=== PATIENT | female | born 1960 | race Caucasian/White ===

== ENCOUNTER 2017-03-26 13:50 | Day surgery (SDC) | payer BC ==
[~2017-03-26 13:50] MED LIST: BRIDION 200MG/2ML IV ONE; DILAUDID 2 MG INJECTION IV ONE; DIPRIVAN 200 MG/20 ML IV ONE; Decadron 4 MG INJ IV ONE; Lactated Ringers 1,000 ML IV ONE; Lactated Ringers 1,000 ML IV SCH; MEFOXIN 2 GM PREMIX** 2 GM/50 ML ML IV ONE; MEFOXIN 2 GM PREMIX** 2 GM/50 ML ML IV SCH; Quelicin Fliptop 200 MG/10 ML IV ONE; SUBLIMAZE 100 MCG/2 ML IV ONE; Sensorcaine 0.25% 10 ML ONE; TORAdol 30 mg Injection IV ONE; Zemuron 100 MG/10 ML IV ONE; Zofran 4 MG/2 ML VIAL IV ONE
[2017-03-26] MEDS ORDERED: MORPHINE SULFATE 2 MG INJ IV PRN (18:24)
[2017-03-26] MEDS ORDERED: MORPHINE SULFATE 2 MG INJ ONE (18:27)
[2017-03-26 19:00] VITALS: PULSE 60; O2SAT 94
[2017-03-26 19:32] VITALS: BP 121/76
== END 2017-03-26 19:35 | disposition home or self-care (01) ==
LOC: SDC 13:50
PROVIDERS: ATTEND Surgery
PROC: 0FT44ZZ Resection of Gallbladder, Percutaneous Endoscopic Approach (ICD-10-PCS; principal; 2017-03-26)
DX: K80.20 Calculus of gallbladder without cholecystitis without obstruction (principal)
CPT/HCPCS: 00790; 36415; 88304; J0330; J0694; J1100; J1170; J1885; J2270; J2405; J2704; J3010

== ENCOUNTER 2018-02-04 11:30 | Day surgery (SDC) | payer BC ==
--- NOTE | 2018-02-03 15:49 | HP ---
DATE OF SURGERY: 02/04/2018 ANTICIPATED PROCEDURE: Colonoscopy. HISTORY OF PRESENT ILLNESS: A patient requiring screening colonoscopy. She had previous laparoscopic cholecystectomy. She has had some diarrhea. She had outpatient stool samples that were satisfactory. She has not had a colonoscopy to date. PAST MEDICAL HISTORY: ALLERGIES: NONE. MEDICATIONS: Lisinopril, amlodipine. PAST SURGICAL HISTORY: Tubal ligation. Cyst removal. Cholecystectomy. SOCIAL HISTORY: One pack per day. ETOH negative. FAMILY HISTORY: Negative. PHYSICAL EXAMINATION: VITAL SIGNS: Normal. CHEST: Clear. COR: Regular. ABDOMEN: No palpable organomegaly or mass. IMPRESSION: Screening colonoscopy. The patient has had some diarrhea. Stool samples will be obtained.
[~2018-02-04 11:30] MED LIST changes: -BRIDION 200MG/2ML IV ONE; -DILAUDID 2 MG INJECTION IV ONE; -DIPRIVAN 200 MG/20 ML IV ONE; -Decadron 4 MG INJ IV ONE; -Lactated Ringers 1,000 ML IV ONE; -MEFOXIN 2 GM PREMIX** 2 GM/50 ML ML IV ONE; -MEFOXIN 2 GM PREMIX** 2 GM/50 ML ML IV SCH; -Quelicin Fliptop 200 MG/10 ML IV ONE; -SUBLIMAZE 100 MCG/2 ML IV ONE; -Sensorcaine 0.25% 10 ML ONE; -TORAdol 30 mg Injection IV ONE; -Zemuron 100 MG/10 ML IV ONE; -Zofran 4 MG/2 ML VIAL IV ONE
[2018-02-04] MEDS ORDERED: DIPRIVAN 200 MG/20 ML IV ONE (11:31)
[2018-02-04] MEDS ORDERED: Versed 2 MG/2 ML Injection IV ONE (11:31)
[2018-02-04] MEDS ORDERED: Lactated Ringers 1,000 ML IV ONE (11:43)
--- NOTE | 2018-02-04 14:19 | OP ---
SURGERY DATE/TIME: 02/04/2018 1326 PREOPERATIVE DIAGNOSIS: Screening with mild diarrhea. POSTOPERATIVE DIAGNOSIS: Grossly normal. Prep score 6/9. PROCEDURE: Colonoscopy complete to cecum. SURGEON: Jacky Wilson M.D. ANESTHESIA: MAC. COMPLICATIONS: None. CONDITION: Stable. INDICATION: The patient is requiring evaluation. DESCRIPTION OF PROCEDURE: Taken to endoscopy. Anal digital tone was normal. Scope introduced. Rectum normal. Sigmoid there was some light gooey stool throughout this is somewhat bilious in nature almost had little particles from time to time. There was a little bit of spasm. There was no diverticulosis. The sigmoid was navigated. The descending colon, splenic flexure, transverse there was a little spasm. There was also still intermittent areas of stool and the stool was brown, chacko brown gooey. Hepatic flexure, descending colon, ileocecal valve, base of the cecum satisfactory. Circumferential withdrawal cecum, ascending, hepatic, transverse, splenic, descending, sigmoid, rectum, anus. No mucosal lesions. The prep was a little marginal. There certainly was a little spasm. Stool sent for Clostridium difficile, ova and parasite, stool pathogens. PLAN: The patient will check back with the office for stool results.
[2018-02-04 14:25] VITALS: BP 126/89; PULSE 71; O2SAT 98
[2018-02-04 16:03] LABS: 027 TOX PROD PRESUMPTIVE NEGATIVE (NEGATIVE); TOXIGENIC C. DIFF ORG NEGATIVE (NEGATIVE)
[2018-02-05 16:28] LABS: Source: Feces
== END 2018-02-04 14:41 | disposition home or self-care (01) ==
LOC: SDC 11:30
PROVIDERS: ATTEND Surgery
DX: R19.7 Diarrhea, unspecified (principal)
CPT/HCPCS: 36415; 87045; 87046; 87177; 87209; 87335; 87493; J2250; J2704

== ENCOUNTER 2024-08-18 09:23 | Day surgery (SDC) | payer BC ==
--- NOTE | 2024-08-16 11:36 | HP ---
HISTORY OF PRESENT ILLNESS: The patient is a 64-year-old female who presents with a history of polyps. Last colonoscopy was about 3 or 5 years ago. She has no colon issues. PAST MEDICAL HISTORY: Hypertension, hyperlipidemia, anxiety, depression. HOME MEDICATIONS: Mounjaro, atorvastatin, potassium, sertraline, amlodipine, lisinopril, vitamin D, multivitamin, Tylenol. ALLERGIES: None. PAST SURGICAL HISTORY: Cholecystectomy, D and C, tubal ligation, . SOCIAL HISTORY: Former smoker. FAMILY HISTORY: Parkinson's. REVIEW OF SYSTEMS: CONSTITUTIONAL: Denies fever or chills. CHEST: Denies shortness of breath. CARDIOVASCULAR: Denies chest pain. ABDOMEN: Denies abdominal pain. PHYSICAL EXAMINATION: GENERAL: No acute distress. CARDIOVASCULAR: Regular rate and rhythm. RESPIRATORY: Nonlabored. No shortness of breath. ABDOMEN: Soft. ASSESSMENT: History of polyps. PLAN: Colonoscopy with Dr. Jacky Wilson. This report was dictated for Dr. Wilson by Pat Kemp NP.
[2024-08-18 09:45] LABS: Hematocrit 41.8 % (34.1-44.9); Mean Cell Volume 86.9 fL (79.4-94.8); Mean Corpuscular Hemoglobin 29.1 pg (25.6-32.2); Mean Corpuscular Hgb Concent. 33.5 g/dL (32.2-35.5); Mean Platelet Volume 9.2 fL (9.4-12.3); Platelet Count 195 x10^3/uL (182-369); Red Blood Count 4.81 x10^6/uL (3.93-5.22); Red Cell Distribution Width 13.3 % (11.7-14.4); White Blood Count 6.5 x10^3/uL (3.98-10.04)
[2024-08-18 09:57] LABS: ANION GAP 14.2 MEQ/L (5-15); Calcium 9.1 mg/dL (8.4-10.2); Creatinine 1 0.86 mg/dL (0.52-1.04); EST GLOMERULAR FILTRATION RATE 76.3 ML/MIN; Potassium 3.5 mmol/L (3.5-5.1)
[2024-08-18] MEDS ORDERED: DIPRIVAN 200 MG/20 ML IV ONE ×2 (13:55→14:12)
[2024-08-18] MEDS ORDERED: Versed 2 MG/2 ML Injection ONE (13:55)
[2024-08-18 14:57] VITALS: RESP 18; O2SAT 99
[2024-08-18 15:05] VITALS: BP 117/65; PULSE 67; TEMP 97.3
--- NOTE | 2024-08-19 18:08 | OP ---
SURGERY DATE/TIME: 08/18/2024 [id number] PREOPERATIVE DIAGNOSIS: History of polyps. POSTOPERATIVE DIAGNOSES: 1) Normal procedure, colonoscopy to the cecum. 2) Moderate internal hemorrhoids. 3) Moderate diverticulosis of the sigmoid. PROCEDURE: Colonoscopic examination complete to cecum. SURGEON: Jacky Wilson MD BACK PAD INSPECTOR: Med Student 3 ANESTHESIA: General. COMPLICATIONS: None. CONDITION: Stable. DESCRIPTION OF PROCEDURE AND FINDINGS: Patient was taken to endoscopy. Anal digital examination satisfactory. Scope introduced. Moderate internal hemorrhoids. Rectum normal. Sigmoid: Moderate sigmoid diverticulosis. Colonoscope advanced. Some glucagon was given. Scope advanced to the cecum. Base of cecum, ileocecal valve, and appendiceal area were normal. Ascending, hepatic, transverse, splenic, descending were normal. Sigmoid: Moderate diverticulosis. Rectum normal. Anus: Hemorrhoids. Patient tolerated the procedure satisfactorily.
== END 2024-08-18 15:07 | disposition home or self-care (01) ==
LOC: SDC 09:23
PROVIDERS: ATTEND Surgery
DX: Z09 Encounter for follow-up examination after completed treatment for conditions other than malignant neoplasm (principal); Z86.0100 Personal history of colon polyps, unspecified; K64.8 Other hemorrhoids; K57.30 Diverticulosis of large intestine without perforation or abscess without bleeding; I10 Essential (primary) hypertension
CPT/HCPCS: 36415; 80048; 85027; 93005; J2250; J2704